=== PATIENT | female | born 1930 | race Caucasian/White ===

== ENCOUNTER → 2016-06-25 | Outpatient (CLI) | payer MEDICARE ==
[~2016-06-25] MED LIST: AMLO2.5T; ASP81TEC; CALC-671; LISI20TA; METO25TA2; SIMV80TA3
--- NOTE | 2016-06-25 14:55 | Diagnostic Imaging Report ---
Transabdominal and transvaginal pelvic ultrasound. INDICATION: Follow-up leiomyoma. COMPARISON: 12/29/2015. FINDINGS: The uterus is 8.6 x 5.7 x 6.8 cm. The endometrial stripe is not well evaluated on this study, obscured by the large mass in the upper aspect of the uterus measuring 5.4 x 5.6 x 4.6 cm. These are not significantly changed measurements from 12/29/2015. The ovaries are obscured by bowel gas. IMPRESSION: A 5.6 cm mass without significant change in the upper aspect of the uterus probably related to a fibroid. Dictated by: Dictated on workstation # [id number]
== END ==
LOC: RAD 10:17
PROVIDERS: ATTEND Internal Medicine
DX: D25.9 Leiomyoma of uterus, unspecified (principal)
CPT/HCPCS: 76830; 76856